=== PATIENT | male | born 1945 | race Caucasian/White ===

== ENCOUNTER 2023-01-26 10:20 | Outpatient (CLI) | payer SELFPAY ==
--- NOTE | 2023-01-26 17:18 | XRAY Report ---
PROCEDURE: Chest 2 View X-Ray INDICATIONS: COPD TECHNIQUE: 2 views of the chest were acquired. COMPARISON: None. FINDINGS: Surgical changes and devices: None. Lungs and pleura: No pleural effusions or pneumothorax. Lungs are clear. Hyperexpansion of the lung s with flattening of the diaphragms suggestive of obstructive pulmonary disease. Mediastinum: Mediastinal contours appear normal. Heart size is normal. Bones and chest wall: No suspicious bony lesions. Overlying soft tissues appear unremarkable. IMPRESSION: No acute cardiopulmonary process. Reviewed by: Baldev Velazquez MD on 01/26/2023 5:16 PM PST Approved by: Baldev Velazquez MD on 01/26/2023 5:16 PM PST Station ID: [id number]
== END 2023-01-26 10:21 | disposition home or self-care (01) ==
LOC: DI 10:20
PROVIDERS: ATTEND Family Medicine
DX: J96.10 Chronic respiratory failure, unspecified whether with hypoxia or hypercapnia (principal); J44.9 Chronic obstructive pulmonary disease, unspecified

== ENCOUNTER 2023-07-14 06:51 | Outpatient (CLI) | payer MEDICARE | END 2023-07-14 23:59 | disposition short-term general hospital (02) | LOC: EMS 06:51 | DX: R06.03 Acute respiratory distress (principal); R00.0 Tachycardia, unspecified; R61 Generalized hyperhidrosis; I48.91 Unspecified atrial fibrillation; I10 Essential (primary) hypertension; I44.7 Left bundle-branch block, unspecified; J44.9 Chronic obstructive pulmonary disease, unspecified; R41.0 Disorientation, unspecified; Z99.81 Dependence on supplemental oxygen | CPT/HCPCS: A0425; A0427 ==

== ENCOUNTER 2023-07-16 23:04 | Emergency (ER) | payer MEDICARE ==
--- NOTE | 2023-07-17 00:10 | ED Physician Documentation ---
History of Present Illness - Stated complaint Stated Complaint: SOA - Chief complaint Chief Complaint: General - History obtained from History obtained from: Patient - Additonal information Additional information: HPI from patient. Patient is supplemental oxygen-dependent, uses concentrator at home, 5 L/min for COPD. He was recently inpatient at [facility] for COPD exacerbation; per patient, he was diagnosed with "heart attack" (per patient) while inpatient, underwent cardiac cath, unclear regarding results (says no stents placed but "they scraped some of the blockages"). He was d/c yesterday and upon returning home found that his concentrator was failing, delivering some oxygen but less than the 5 l/min he usually uses. He is asymptomatic but concerned his oxygen requirements will not be met overnight with his failing device PD PAST MEDICAL HISTORY - Past Medical History Past Medical History: Yes Cardiovascular: Hypertension, [place] Respiratory: COPD Endocrine/Autoimmune: Type 2 diabetes - Past Surgical History Past Surgical History: Yes - Allergies Allergies/Adverse Reactions: Allergies Allergy/AdvReac Type Severity Reaction Status Date / Time No Known Drug Allergies Allergy Verified 07/16/23 23:14 - Social History Does the pt smoke?: No Smoking Status: Current every day smoker Does the pt drink ETOH?: No Does the pt have substance abuse?: No - Immunizations Immunizations are current?: No Immunizations: TDAP >10years/unknown PD ED PE NORMAL - Vitals Vital signs reviewed: Yes - General General: Alert and oriented X 3, No acute distress, Well developed/nourished - Cardiac Cardiac: RRR, No murmur - Respiratory Respiratory: No respiratory distress - Abdomen Abdomen: Soft, Non tender PD ED PE EXPANDED - Respiratory Respiratory: Decreased breath sounds Results - Vitals Vitals: Vital Signs - 24 hr 07/16/23 07/17/23 07/17/23 23:07 01:05 03:00 Temperature 36.6 C Heart Rate 92 88 89 Respiratory 20 20 Rate Blood Pressure 118/86 H 139/79 H O2 Saturation 89 L 97 96 If not protocol 5 : Oxygen Flow, liters/minute 07/17/23 07/17/23 07/17/23 05:00 07:00 07:45 Temperature Heart Rate 79 96 94 Respiratory 16 22 Rate Blood Pressure 127/92 H 127/92 H O2 Saturation 97 95 85 L If not protocol 2 : Oxygen Flow, liters/minute 07/17/23 07/17/23 07:48 07:50 Temperature Heart Rate 88 Respiratory 18 Rate Blood Pressure O2 Saturation 97 If not protocol 2 2 : Oxygen Flow, liters/minute Oxygen O2 Source Nasal cannula Oxygen Flow Rate 5 PD Medical Decision Making - ED course Complexity details: considered differential, d/w patient ED course: no testing indicated at this time. only concern is maintaining his 5 L/min supplemental oxygen requirement with broken concentrator at home. Respiratory therapist was asked to speak with patient to ascertain options for addressing this problem. Respiratory therapist says that patient indicates he bought the device online, unclear who recommended he obtain the device and who, if anyone, actually prescribed it. Respiratory therapist attempted to contact one of the local providers of supplemental oxygen/supplies ([employer]), but the on- call [employer] representative could not be reached. I would consider prescribing the concentrator but uncertain which pharmacies are open later today (), what hours they will be open, whether they have the appropriate device in stock, and whether patient's insurance would cover the device. Also would need someone to corn picker the device and bring it to ED, as patient says he must have continuous 5 L/min oxygen. Patient is held in ED remainder of my shift until pharmacies are open and [employer] representative is hopefully available Departure - Departure Forms: PCP List
[2023-07-17 07:07] VITALS: BP 127/92
[2023-07-17] MEDS: ALBUTEROL NEB 2.5 MG/3 ML INH SCH (07:44)
--- NOTE | 2023-07-17 11:30 | ED Physician Documentation ---
ED Addendum - Addendum Addendum: 07/17/23 11:24 The patient was noted to be 85% oxygenation on room air. He was placed on nasal cannula it and is running between 91 and 93% on 2 L nasal cannula. Respiratory therapy tried contacting [facility] and worked with his Medicare reportedly. We are still trying to contact the [facility] pharmacy services representative to see if they are able to get a concentrator out to him today. The patient wishes to go home. We are able to provide him with to large cell oxygen tanks and flowing at 2 L/min by nasal cannula, should get him 8 to 10 hours of oxygen time. He states that his concentrator at home does work intermittently so he may able to get some use out of it to fill gaps between use of the oxygen tanks. I did offer the possibility of staying here until we are more firmly confirmed with the home concentrator. He prefers going home at this time and we have an interim plan at this point. He is to return to the ER if needed for dyspnea or hypoxia. He is feeling well otherwise without any cold or flu symptoms. He does not have a oximeter at home. I suggested this may be of benefit as we can follow his oxygenation to try to titrate the input oxygen level with activity etc. I told him his goal would be just above 90% and not to go high 90s as that would be excessive oxygen for as needed. He currently uses albuterol inhaler. We could Provide him with a inhaled steroid/beta agonist.We can also add a Atrovent as well. The patient does have a history of CHF so emphasis on not having had a non-STEMI recently as well. However he has had this COPD as well as CHF diagnosis and does not seem to be on a long-acting inhalers. Disposition: To this point patient discharged home in stable condition. Diagnoses: 1. Chronic hypoxemia on oxygen 2. History of COPD 3. History of CHF 4. Home concentrator malfunction
[2023-07-17 12:03] VITALS: O2SAT 98
== END 2023-07-17 11:56 | disposition home or self-care (01) ==
LOC: ED 23:04
DX: R09.02 Hypoxemia (principal); J44.9 Chronic obstructive pulmonary disease, unspecified; I50.9 Heart failure, unspecified; Z99.81 Dependence on supplemental oxygen; F17.200 Nicotine dependence, unspecified, uncomplicated
CPT/HCPCS: 94640; 94761; 99282; 99284

== ENCOUNTER 2023-07-24 04:05 | Outpatient (CLI) | payer MEDICARE | END 2023-07-24 23:59 | disposition short-term general hospital (02) | LOC: EMS 04:05 | DX: R07.9 Chest pain, unspecified (principal); Z99.81 Dependence on supplemental oxygen; I25.2 Old myocardial infarction | CPT/HCPCS: A0425; A0427 ==